=== PATIENT | male | born 1970 | race Caucasian/White ===

== ENCOUNTER → 2020-06-19 16:22 | Outpatient (REF) | payer OTHER, SELFPAY | LOC: ANHLAB 16:22 | PROVIDERS: Visit Provider Nurse Practitioner | DX: C44.619 Basal cell carcinoma of skin of left upper limb, including shoulder (principal) | CPT/HCPCS: 88305 ==

== ENCOUNTER → 2020-08-27 07:12 | Outpatient (REF) | payer OTHER, SELFPAY | LOC: ANHLAB 07:12 | PROVIDERS: Visit Provider Nurse Practitioner | DX: C44.619 Basal cell carcinoma of skin of left upper limb, including shoulder (principal) | CPT/HCPCS: 88305; 88331 ==

== ENCOUNTER → 2021-08-13 16:57 | Outpatient (REF) | payer OTHER, SELFPAY | LOC: ANHLAB 16:57 | PROVIDERS: Visit Provider Nurse Practitioner | DX: D22.72 Melanocytic nevi of left lower limb, including hip (principal) | CPT/HCPCS: 88305 ==